=== PATIENT | female | born 1950 | race Caucasian/White ===

== ENCOUNTER 2017-06-30 07:50 | Day surgery (SDC) | payer MEDICARE, BC ==
[2017-06-30] MEDS ORDERED: Lactated Ringers 1,000 ML IV SCH (08:00)
[2017-06-30] MEDS ORDERED: Propofol 200 MG/20 ML SDV IV ONE (10:00)
[2017-06-30] MEDS ORDERED: Glycopyrrolate 0.2 MG/ML 2 ML SDV IV ONE (10:00)
[2017-06-30] MEDS ORDERED: Ondansetron 4 MG/2 ML SDV IVPUSH ONE (10:00)
[2017-06-30] MEDS ORDERED: Midazolam 1 MG/ML 2 ML SDV IV ONE (10:00)
--- NOTE | 2017-06-30 10:33 | PCM.OPNOTE ---
- General Post-Op/Procedure Note Date of Surgery/Procedure: 06/30/17 Operative Procedure(s): c scope with bx every 10 cm Findings: normal exam Pre Op Diagnosis: uc Post-Op Diagnosis: uc Anesthesia Technique: MAC Primary Surgeon: Marcus Arthur Anesthesia Provider: Jyoti Stewart Pathology: colon bx every 10 cm Complications: None Condition: Good Free Text/Narrative:: see dictation
[2017-06-30 11:08] VITALS: BP 129/84
--- NOTE | 2017-06-30 13:14 | OR ---
DATE OF OPERATION: 06/30/2017 SURGEON: Marcus Arthur MD PROCEDURE PERFORMED: Colonoscopy with random biopsies. PREOPERATIVE DIAGNOSIS: History of ulcerative colitis. POSTOPERATIVE DIAGNOSIS: Normal scope. INDICATIONS FOR PROCEDURE: Ms. Light is a 67-year-old white female who has a history of pancolitis. She is due for a followup colonoscopy. DESCRIPTION OF OPERATION: After an excellent IV sedation was administered, digital rectal exam was performed. No marked abnormality was noted. Flexible colonoscope was inserted and advanced without difficulty to the cecum. The prep was excellent. The following findings were noted. Ascending colon unremarkable. Biopsies every 10 cm submitted in one container. Transverse colon unremarkable. Random biopsies every 10 cm. Descending colon unremarkable. Random biopsies every 10 cm. Sigmoid and rectum unremarkable. Random biopsies every 10 cm. Colon was deflated as the scope was removed. The patient tolerated the procedure well, and was taken to recovery room in good condition. /[id number] /ARLENE
== END 2017-06-30 11:30 | disposition home or self-care (01) ==
LOC: FB.SDS 07:50
PROVIDERS: ATTEND Surgery
DX: K51.00 Ulcerative (chronic) pancolitis without complications (principal); I10 Essential (primary) hypertension; D80.3 Selective deficiency of immunoglobulin G [IgG] subclasses; K59.09 Other constipation; Z87.891 Personal history of nicotine dependence; Z80.0 Family history of malignant neoplasm of digestive organs; Z79.82 Long term (current) use of aspirin; Z79.899 Other long term (current) drug therapy; Z98.890 Other specified postprocedural states
CPT/HCPCS: 00812; 45380; 88305; J2250; J2405; J2704; J7120; J3490

== ENCOUNTER 2022-07-12 09:24 | Emergency (ER) | payer BC, MEDICARE ==
[2022-07-12 11:32] VITALS: PULSE 60
[2022-07-12 11:41] VITALS: BP 172/53
== END 2022-07-12 10:15 | disposition home or self-care (01) ==
LOC: FB.ED 09:24
DX: G89.18 Other acute postprocedural pain (principal); M79.672 Pain in left foot; I10 Essential (primary) hypertension; Z79.899 Other long term (current) drug therapy; Z79.82 Long term (current) use of aspirin
CPT/HCPCS: 99283

== ENCOUNTER 2022-07-20 06:10 | Day surgery (SDC) | payer BC ==
[2022-07-20] MEDS ORDERED: Propofol 200 MG/20 ML SDV IV ONE (06:11)
[2022-07-20] MEDS ORDERED: Lidocaine 2% 5 ML SDV IV ONE (06:11)
[2022-07-20] MEDS ORDERED: Lactated Ringers 1,000 ML IV SCH (06:15)
[2022-07-20] MEDS ORDERED: Sodium Chloride 0.9% 10 ML Syringe FLUSH PRN (06:15)
[2022-07-20 07:09] VITALS: BP 129/65; PULSE 73
[2022-07-20] MEDS ORDERED: Simethicone Drops 40 MG/0.6 ML 30 ML Bottle PO ONE (07:35)
== END 2022-07-20 09:20 | disposition home or self-care (01) ==
LOC: FB.SDS 06:10
PROVIDERS: ATTEND Surgery
DX: K63.89 Other specified diseases of intestine (principal); I10 Essential (primary) hypertension; M85.80 Other specified disorders of bone density and structure, unspecified site; Z87.19 Personal history of other diseases of the digestive system; Z79.899 Other long term (current) drug therapy; Z88.5 Allergy status to narcotic agent; Z98.890 Other specified postprocedural states; Z87.891 Personal history of nicotine dependence
CPT/HCPCS: 00811; 88305; A9270-GY; J2704; J7120